=== PATIENT | female | born 1965 | race Caucasian/White ===

== ENCOUNTER 2021-06-29 13:36 | Day surgery (SDC) | payer BC ==
[~2021-06-29] VITALS: Ht 162.6 cm; Wt 88.0 kg
[~2021-06-29 13:36] MED LIST: AMLO5 PO; ASCO500; Benicar40 MG PO; CHOL10002; CHOL10002 PO; CYAN1000 PO; FERR325 PO; FISH1000; FISH1000 PO; Garlic1 EAC1 PO; Garlic1 EACH; MEDR10 PO; OLME40; OLME40 PO; OMEP20ER PO
== END 2021-06-29 15:25 | disposition home or self-care (01) ==
LOC: ORSCSDS 13:36
PROVIDERS: Surgery
PROC: 0DJD8ZZ Inspection of Lower Intestinal Tract, Via Natural or Artificial Opening Endoscopic (ICD-10-PCS; principal; 2021-06-29 15:00)
DX: Z12.11 Encounter for screening for malignant neoplasm of colon (principal); I10 Essential (primary) hypertension; E78.00 Pure hypercholesterolemia, unspecified; E78.1 Pure hyperglyceridemia; E66.9 Obesity, unspecified; Z68.34 Body mass index [BMI] 34.0-34.9, adult; Z79.899 Other long term (current) drug therapy
CPT/HCPCS: J2704; J7120

== ENCOUNTER 2023-02-21 02:03 | Emergency (ER) | payer BC ==
[~2023-02-21] VITALS: Ht 165.1 cm; Wt 74.8 kg
[2023-02-21] MEDS ORDERED: OZEMPIC0.25 MG/02 SQ (02:48)
[2023-02-21 02:57] LABS: BASOPHILS ABSOLUTE AUTO 0.06 K/mm3 (0.00-0.23); BASOPHILS PERCENT AUTO 1 % (0-2); EOSINOPHILS PERCENT AUTO 1 % (0-6); Hematocrit 41.9 % (33.0-51.0); Hemoglobin 14.5 g/dL (11.5-16.0); IMMATURE GRAN ABSOLUTE AUTO 0.03 K/mm3 (0.00-0.10); IMMATURE GRAN PERCENT AUTO 0 % (0-1); LYMPHOCYTES ABSOLUTE AUTO 3.79 K/mm3 (0.84-5.20); LYMPHOCYTES PERCENT AUTO 35 % (21-46); MONOCYTES ABSOLUTE AUTO 0.59 K/mm3 (0.16-1.47); MONOCYTES PERCENT AUTO 6 % (4-13); Mean Corpuscular HGB Conc 34.6 g/dL (31.5-36.5); Mean Corpuscular Volume 87 fL (80-100); Mean Platelet Volume 9.8 fL (9.1-12.4); NEUTROPHILS ABSOLUTE AUTO 6.22 K/mm3 (1.96-9.15); NEUTROPHILS PERCENT AUTO 58 % (41-73); Platelet Count 258 K/mm3 (150-400); RDW Standard Deviation 40.8 fL (35.1-46.3); Red Blood Cell Count 4.83 M/mm3 (3.80-5.20); White Blood Cell Count 10.79 K/mm3 (4.00-11.30)
[2023-02-21 03:08] LABS: Albumin/Globulin Ratio 1.2 (0.8-1.8); Bilirubin, Total 0.3 mg/dL (0.1-1.0); Bun/Creatinine Ratio 19.8 (12.0-20.0); Calcium, Blood 8.9 mg/dL (8.5-10.1); Creatinine, Blood 0.76 mg/dL (0.40-1.00); Globulin, Blood 3.3 g/dL (2.2-4.0); Potassium, Blood 3.9 mmol/L (3.5-5.5); Total Protein, Blood 7.3 g/dL (6.4-8.2)
[2023-02-21 07:43] VITALS: BP 127/72
== END 2023-02-21 07:42 | disposition home or self-care (01) ==
LOC: ER 02:03
PROVIDERS: Emergency Medicine
DX: K80.20 Calculus of gallbladder without cholecystitis without obstruction (principal); D18.03 Hemangioma of intra-abdominal structures; I10 Essential (primary) hypertension; Z88.0 Allergy status to penicillin; Z88.5 Allergy status to narcotic agent; Z88.6 Allergy status to analgesic agent; Z88.8 Allergy status to other drugs, medicaments and biological substances; Z79.85 Long-term (current) use of injectable non-insulin antidiabetic drugs; Z79.899 Other long term (current) drug therapy
CPT/HCPCS: 76705; 80053; 83690; 84484; 85025; 93005; 93010; 96374; 96375; 99284-25; A9270; J1885; J2405

== ENCOUNTER → 2023-07-05 | Outpatient (CLI) | payer BC | LOC: LAB SHORT 10:00 → LAB 10:00 | DX: Z01.419 Encounter for gynecological examination (general) (routine) without abnormal findings (principal) ==

== ENCOUNTER → 2024-10-28 | Outpatient (CLI) | payer BC ==
[~2024-10-28] MED LIST changes: +OZEMPIC0.25 MG/02 SQ
== END ==
LOC: LAB SHORT 11:40 → LAB 11:40
DX: R30.0 Dysuria (principal)
CPT/HCPCS: 87086